=== PATIENT | female | born 1995 | race Caucasian/White ===

== ENCOUNTER → 2017-05-12 | Outpatient (CLI) | payer BC, OTHER | LOC: BMCIMAGING 07:42 | PROVIDERS: ATTEND Physician Assistant | DX: R14.0 Abdominal distension (gaseous) (principal); R10.9 Unspecified abdominal pain ==

== ENCOUNTER → 2017-07-23 | Outpatient (CLI) | payer OTHER | LOC: FIMAGING 11:14 | PROVIDERS: ATTEND Physician Assistant | DX: R10.13 Epigastric pain (principal) | CPT/HCPCS: A9537 ==

== ENCOUNTER 2018-06-21 21:47 | Emergency (ER) | payer OTHER ==
[2018-06-21] MEDS ORDERED: TAMSULOSIN HCL 0.4 MG CAP PO ONE (22:03)
[2018-06-21] MEDS ORDERED: FAMOTIDINE 20 MG TAB PO ONE (22:03)
[2018-06-21] MEDS ORDERED: FAMOTIDINE 20 MG/NACL 50 ML IV ONE (22:03)
--- NOTE | 2018-06-21 22:07 | EDPHY ---
H & P Stated Complaint: abd pain Time Seen by Provider: 06/21/18 21:59 HPI/ROS: CHIEF COMPLAINT: Epigastric abdominal pain now resolved HISTORY OF PRESENT ILLNESS: 23-year-old female prior history of peptic ulcer disease diagnosed proximal year ago by upper endoscopic evaluation by of the [facility], arrives via private vehicle complaining of epigastric pain which started when she was at the movies this evening. Pain described as cramping sensation. This is now resolved. She had similar sensation last evening. She describes bowel movements as loose. She is currently asymptomatic. Denies: Fever, chills, nausea, vomiting, trauma, rash. PRIMARY CARE PROVIDER: REVIEW OF SYSTEMS: 10 systems reviewed and negative with the exception of the elements mentioned in the history of present illness PAST MEDICAL & SURGICAL HISTORY: Peptic ulcer disease SOCIAL HISTORY: Nonsmoker. PHYSICAL EXAM (Prior to examination, patient consented to physical exam, hands were washed and my usual and customary physical exam procedures followed) 1) GENERAL: Well-developed, well-nourished, alert and oriented. Appears to be in no acute distress. Smiling. Shakes my hand. Appears well. 2) HEAD: Normocephalic, atraumatic 3) HEENT: Pupils equal, round, reactive to light bilaterally. Sclera anicteric. Nasopharynx, oropharynx, clear, no lesions. Moist mucous membranes. 4) NECK: Full range of motion, no meningeal signs. 5) LUNGS: Clear auscultation bilaterally, no wheezes, no rhonchi, no retractions. 6) HEART: Regular rate and rhythm, no murmur, no heave, no gallop. 7) ABDOMEN: No guarding, no rebound, no focal tenderness, negative McBurney's, negative Mccoy's, negative Rovsing's, negative peritoneal sign, I am unable to elicit any abdominal pain whatsoever on exam 8) MUSCULOSKELETAL: Moving all extremities, no focal areas of tenderness, no obvious trauma. No peripheral edema or discoloration. 9) BACK: No CVA tenderness, no midline vertebral tenderness, no fluctuance, no step-off, no obvious trauma, no visual or palpable abnormality. 10) SKIN: No rash, no petechiae. 11) Psychiatric: Patient is oriented X 3, there is no agitation. DIFFERENTIAL DIAGNOSIS: In no particular order, including but not limited to biliary colic, cholecystitis, constipation, peptic ulcer disease, viscous perforation, pancreatitis, and gastroenteritis. This is a partial list of diagnoses considered. These considerations are based on history, physical exam, past history and reassessment. - Personal History LMP (Females 10-55): 1-7 Days Ago Current Tetanus/Diphtheria Vaccine: Yes Current Tetanus Diphtheria and Acellular Pertussis (TDAP): Yes - Medical/Surgical History Hx Asthma: No Hx Chronic Respiratory Disease: No Hx Diabetes: No Hx Cardiac Disease: No Hx Renal Disease: No Hx Cirrhosis: No Hx Alcoholism: No Hx HIV/AIDS: No Hx Splenectomy or Spleen Trauma: No Other PMH: IBS - Social History Smoking Status: Never smoked Constitutional: Initial Vital Signs Temperature (C) 37.0 C 06/21/18 21:52 Heart Rate 94 06/21/18 21:52 Respiratory Rate 16 06/21/18 21:52 Blood Pressure 132/88 H 06/21/18 21:52 O2 Sat (%) 97 06/21/18 21:52 O2 Delivery Mode Room Air Allergies/Adverse Reactions: No Known Allergies Allergy (Unverified 06/21/18 21:56) Home Medications: Medication Instructions Recorded Calcium 06/21/18 Face Medication 06/21/18 Pantoprazole Sodium [Protonix 40mg 40 mg PO DAILY #30 tab 06/21/18 (RX)] Potassium Cl 06/21/18 Ranitidine HCl [Zantac] 150 mg PO BID #30 tablet 06/21/18 Medical Decision Making ED Course/Re-evaluation: 11:50 p.m.: Re-evaluation. Patient resting comfortably. She is working on her laptop, sitting upright, smiling. She has been given Zantac, a GI cocktail comp. I re-examined her abdomen which is soft no guarding no rebound. Doubt acute pancreatitis. We discussed possibly peptic ulcer disease however this cannot be fully diagnose at this time and I strongly recommended she follow up with Gastroenterology of the [facility] where she has an established relationship. Recommend initiating Zantac and PPI. Dietary recommendations provided. - Data Points Laboratory Results: Laboratory Results 06/21/18 22:10 06/21/18 22:10 06/21/18 06/21/18 06/21/18 22:10 22:10 22:10 WBC 6.35 10^3/uL 10^3/uL (3.80-9.50) RBC 4.55 10^6/uL 10^6/uL (4.18-5.33) Hgb 13.1 g/dL g/dL (12.6-16.3) Hct 38.0 % % (38.0-47.0) MCV 83.5 fL fL (81.5-99.8) MCH 28.8 pg pg (27.9-34.1) MCHC 34.5 g/dL g/dL (32.4-36.7) RDW 11.8 % % (11.5-15.2) Plt Count 207 10^3/uL 10^3/uL (150-400) MPV 9.3 fL fL (8.7-11.7) Neut % (Auto) 40.1 % % (39.3-74.2) Lymph % (Auto) 50.4 % H % (15.0-45.0) Kerr % (Auto) 6.5 % % (4.5-13.0) Eos % (Auto) 1.9 % % (0.6-7.6) Baso % (Auto) 0.9 % % (0.3-1.7) Nucleat RBC Rel Count 0.0 % % (0.0-0.2) Absolute Neuts (auto) 2.55 10^3/uL 10^3/uL (1.70-6.50) Absolute Lymphs (auto) 3.20 10^3/uL H 10^3/uL (1.00-3.00) Absolute Monos (auto) 0.41 10^3/uL 10^3/uL (0.30-0.80) Absolute Eos (auto) 0.12 10^3/uL 10^3/uL (0.03-0.40) Absolute Basos (auto) 0.06 10^3/uL 10^3/uL (0.02-0.10) Absolute Nucleated RBC 0.00 10^3/uL 10^3/uL (0-0.01) Immature Gran % 0.2 % % (0.0-1.1) Immature Gran # 0.01 10^3/uL 10^3/uL (0.00-0.10) Sodium 138 mEq/L mEq/L (135-145) Potassium 3.6 mEq/L mEq/L (3.5-5.2) Chloride 105 mEq/L mEq/L (97-110) Carbon Dioxide 20 mEq/l L mEq/l (22-31) Anion Gap 13 mEq/L mEq/L (6-14) BUN 9 mg/dL mg/dL (7-23) Creatinine 0.7 mg/dL mg/dL (0.6-1.0) Estimated GFR > 60 Glucose 95 mg/dL mg/dL (70-100) Calcium 9.1 mg/dL mg/dL (8.5-10.4) Total Bilirubin 0.2 mg/dL mg/dL (0.1-1.4) Conjugated Bilirubin 0.2 mg/dL mg/dL (0.0-0.5) Unconjugated Bilirubin 0.0 mg/dL mg/dL (0.0-1.1) AST 25 IU/L IU/L (14-46) ALT 36 IU/L IU/L (9-52) Alkaline Phosphatase 54 IU/L IU/L (38-126) Total Protein 6.7 g/dL g/dL (6.3-8.2) Albumin 4.1 g/dL g/dL (3.5-5.0) Lipase 103 IU/L IU/L (23-300) Beta HCG, Qual NEGATIVE Medications Given: Discontinued Medications Al Hydroxide/Mg Hydroxide (Maalox Susp) 30 ml PO ONCE ONE Stop: 06/21/18 22:28 Last Admin: 06/21/18 22:52 Dose: 30 ml Famotidine (Pepcid) 20 mg PO EDNOW ONE Stop: 06/21/18 22:04 Last Admin: 06/21/18 22:52 Dose: 20 mg Hyoscyamine Sulfate (Levsin, Hyomax-Sl) 0.25 mg PO ONCE ONE Stop: 06/21/18 22:28 Last Admin: 06/21/18 22:52 Dose: 0.25 mg Lidocaine (Lidocaine 2% Viscous) 15 ml PO ONCE ONE Stop: 06/21/18 22:28 Last Admin: 06/21/18 22:52 Dose: 15 ml Ondansetron HCl (Zofran) 4 mg IVP EDNOW ONE Stop: 06/21/18 22:47 Last Admin: 06/21/18 22:52 Dose: 4 mg Departure - Departure Disposition: Home, Routine, Self-Care Clinical Impression: Abdominal pain Qualifiers: Abdominal location: epigastric Qualified Code(s): R10.13 - Epigastric pain Condition: Good Instructions: Acute Abdominal Pain (ED) Additional Instructions: I recommend bland food. I recommend no alcohol. Return to the ER if you develop new or worsening symptoms. Referrals: Ulises Johnson MD [Medical Doctor] - 1-2 days without fail Stand Alone Forms: School Excuse Prescriptions: Pantoprazole Sodium [Protonix 40mg (RX)] 40 mg PO DAILY #30 tab Ranitidine HCl [Zantac] 150 mg PO BID #30 tablet
[2018-06-21] MEDS ORDERED: MAG HYDROX/AL HYDROX/SIMETH 30 ML UDCUP PO ONE (22:27)
[2018-06-21] MEDS ORDERED: HYOSCYAMINE SULFATE 0.125 MG TAB PO ONE (22:27)
[2018-06-21] MEDS ORDERED: LIDOCAINE 2% VISCOUS 15 ML UDCUP PO ONE (22:27)
[2018-06-21 22:30] LABS: PLATELET COUNT 207 10^3/uL (150-400)
[2018-06-21] MEDS ORDERED: ONDANSETRON 4 MG/2 ML VIAL IVP ONE (22:46)
[2018-06-21 23:39] VITALS: BP 129/87
== END 2018-06-22 | disposition home or self-care (01) ==
DX: R10.13 Epigastric pain (principal)
CPT/HCPCS: 96374; J2405